=== PATIENT | female | born 2000 | race African-American/Black ===

== ENCOUNTER 2022-01-25 20:14 | Inpatient (IN) | payer MEDICAID, OTHER ==
[2022-01-25] MEDS ORDERED: ACETAMINOPHEN TAB 325 MG TAB PO PRN (22:06)
[2022-01-25] MEDS ORDERED: MAGNESIUM HYDROXIDE 2,400 MG/10 ML CUP PO PRN (22:06)
[2022-01-25] MEDS ORDERED: MAG HYDROX/AL HYDROX/SIMETH 30 ML CUP PO PRN (22:06)
[2022-01-25] MEDS ORDERED: HALOPERIDOL LACTATE 5 MG/ML 1 ML VIAL IM PRN (22:15)
[2022-01-25] MEDS ORDERED: LORazepam 2 MG/ML INJ IM PRN (22:16)
[2022-01-25] MEDS: OLANZapine 10 MG TAB PO SCH (22:37)
[2022-01-26] MEDS: MAGNESIUM OXIDE 400 MG TAB PO SCH (09:04)
[2022-01-26] MEDS: LURASIDONE 20 MG TAB PO SCH (09:04)
[2022-01-26] MEDS: LORazepam 1 MG TAB PO PRN (17:00)
[2022-01-26] MEDS: haloperidoL 5 MG TAB PO PRN (18:08)
--- NOTE | 2022-01-26 20:18 | P.HP ---
Psychiatric H&P - . H&P Date: 01/26/22 History & Physical: IDENTIFYING DATA: Patient is a 21 year old female with acute psychosis who was transferred from [facility]. HPI: Patient presented to the hospital after being picked up by police. She reports she was brought to the hospital because she was paranoid and thought that people were out to get her, was being watched, parents were not letting her out of the house, couldn't drive the car, has to be near them, because she wasn't being herself. She got out of the house, ran down the street screaming, and her parents had to call the police. Patient denies any suicidal or homicidal ideations intent or plan. Patient denies any flight of ideas racing thoughts and increased in goal directed behavior. She does appear overtly psychotic and there is evidence thought blocking. She reports auditory hallucinations, denies visual hallucinations. She denies drinking alcohol. She reports smoking marijuana three times a week. She denies any other illicit drug use or tobacco use. PAST PSYCHIATRIC HISTORY: Patient states that she has been diagnosed with paranoid schizophrenia. Past psychiatric medications: Zyprexa (reports this helped her), but has not taken it in four months because she thought she was doing ok. Previous psychiatric hospitalizations: [facility], and has been to [facility] several times. Psychiatric outpatient follow-up: Dr. Sudhir cohen. History of suicide attempts in the past: 3 times PMH: denies ALLERGIES: as per EMR CHEMICAL DEPENDENCY HISTORY: as per HPI FAMILY PSYCHIATRIC/SUBSTANCE USE HISTORY: Maternal grandmother - "a lunatic", Paternal grandfather - schizophrenia SOCIAL HISTORY: Patient was born and raised in [place], [place]. Never , no children. Lives alone in [facility] at an assisted living apartment. MENTAL STATUS EXAM: General Appearance: Patient appears to be stated age, is dressed in tank top and sweats, fair hygiene. Orientation: She is alert, oriented to person, place, time and situation. Behavior: Patient is seated without any agitated behavior. Speech: Patient's speech is fluent and nonpressured, speaks in soft tone. Mood/Affect: Patient reports their mood is fine, affect is congruent and blunted. Suicidality/Homicidality: Patient denies having any homicidal ideation intent or plan. Denies any suicidal ideations intent or plan. Perceptions: Patient denies any visual hallucinations, but does endorse auditory hallucinations and appears to be attending to internal stimuli. Though content/process: There is no evidence of some paranoid delusional thought content. Thought process is generally linear, with some evidence of thought blocking. Memory and concentration: Grossly intact for the purposes of this session. Can spell "WORLD" backwards Judgment and insight: poor STRENGTHS/WEAKNESSES: Strength is that patient is resilient. Weakness is that patient has poor judgment and is impulsive. INTELLECT: Average IMPRESSIONS: Schizophrenia Cannabis use disorder PLAN: -Patient is admitted under involuntary status to MHU for stabilization of psychiatric symptoms and safety. Patient has signed adult voluntary form and medication consent and is placed in patient's chart. -Medications: Zyprexa restarted at 10 mg QHS for psychosis. Latuda restarted at 60 mg daily in the morning, and will titrate further as necessary. -Ativan and Haldol PRN for agitation/aggression -Patient was counselled on substance abuse and desired to cut back on use -Patient was informed of the risks, benefits and side effects of the medication and patient verbally consented to taking the medications. Patient signed med consent form and was placed in chart. -Internal Medicine consult to perform medical evaluation and physical. -NRT - not a smoker -SW on board for discharge planning. Encourage patient to participate in groups to work on coping skills. [] Allergies Allergy/AdvReac Type Severity Reaction Status Date / Time No Known Allergies Allergy Verified 01/26/22 13:55 Vital Signs Temp 97 F L 01/26/22 06:37 Pulse 74 01/26/22 06:37 Resp 12 01/26/22 06:37 BP 88/51 01/26/22 06:37 Pulse Ox FiO2 Intake & Output 01/26/22 01/26/22 01/27/22 06:59 18:59 06:59 Weight 71.7 kg 01/26/22 19:56 01/26/22 20:09
[2022-01-26] MEDS ORDERED: OLANZapine 10 MG TAB PO SCH (21:00)
[2022-01-26] MEDS: OLANZapine 10 MG TAB PO SCH (21:01)
--- NOTE | 2022-01-27 03:21 | P.PN ---
Progress Note - Text Progress Note Date: 01/26/22 Attempted to see the patient in the mental health unit at 2100 on 01/26. The patient was refusing to be seen or be evaluated.
[2022-01-27] MEDS: MAGNESIUM OXIDE 400 MG TAB PO SCH (08:54)
[2022-01-27] MEDS: LURASIDONE 20 MG TAB PO SCH (08:54)
[2022-01-27] MEDS: haloperidoL 5 MG TAB PO PRN (10:48)
[2022-01-27 17:08] LABS: Chol/HDL Ratio 2.91 Ratio; LDL Cholesterol,Calculated 74.1 mg/dL (0.0-131.0); VLDL Calculation 13.92 mg/dL (5.00-40.00)
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
[2022-01-27] MEDS ORDERED: PALIPERIDONE 3 MG TAB.ER.24 PO SCH (21:00)
[2022-01-28] MEDS ORDERED: LURASIDONE 40 MG TAB PO SCH (09:00)
[2022-01-28] MEDS: MAGNESIUM OXIDE 400 MG TAB PO SCH (09:35)
[2022-01-28] MEDS: PALIPERIDONE 6 MG TAB.ER.24 PO SCH ×2 (14:50→15:20)
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
--- NOTE | 2022-01-29 02:10 | P.PN ---
Progress Note - Text Progress Note Date: 01/29/22 Attempt to see the patient at 2200 on 01/28. The patient was sleeping and refused to be seen or evaluated.
[2022-01-29 07:08] VITALS: RESP 16
[2022-01-29] MEDS: MAGNESIUM OXIDE 400 MG TAB PO SCH (09:27)
[2022-01-29] MEDS: PALIPERIDONE 6 MG TAB.ER.24 PO SCH (09:34)
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
[2022-01-29] MEDS: LORazepam 1 MG TAB PO PRN (22:05)
[2022-01-30] MEDS ORDERED: PALIPERIDONE 3 MG TAB.ER.24 PO SCH ×2 (09:00→15:00)
[2022-01-30] MEDS: MAGNESIUM OXIDE 400 MG TAB PO SCH (09:09)
[2022-01-30] MEDS ORDERED: LORazepam 2 MG/ML INJ IM PRN (09:34)
[2022-01-30] MEDS ORDERED: LORazepam 0.5 MG TAB PO PRN (09:35)
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
[2022-01-30] MEDS: haloperidoL 5 MG TAB PO PRN (11:07)
[2022-01-30 16:03] LABS: Appearance,Urine Clear (Clear); Bilirubin,Urine Negative (Negative); Blood,Urine Negative (Negative); Color,Urine Light Yellow; Glucose,Urine (UA) Negative (Negative); Ketones,Urine Negative (Negative); Leukocyte Esterase,Urine Moderate (Negative); Nitrite,Urine Negative (Negative); PH, Urine 6.5 (5.0-8.0); Protein,Urine Negative (Negative); RBC,Urine 2 /hpf (0-5); Specific Gravity,Urine 1.004 (1.001-1.035); Squamous Epithelial Cell,Urine 3 /hpf (0-4); Urobilinogen,Urine <2.0 mg/dL (<2.0); WBC,Urine 4 /hpf (0-5)
[2022-01-31] MEDS: MAGNESIUM OXIDE 400 MG TAB PO SCH (08:35)
[2022-01-31] MEDS ORDERED: PALIPERIDONE IM 234 MG/1.5 ML SYG IM STA (09:41)
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
[2022-02-01 07:06] VITALS: BP 94/53; PULSE 87; TEMP 97.6
[2022-02-01] MEDS: MAGNESIUM OXIDE 400 MG TAB PO SCH (08:53)
[2022-02-01] MEDS ORDERED: PALIPERIDONE 6 MG TAB.ER.24 PO SCH (11:30)
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
== END 2022-02-01 12:54 | disposition home or self-care (01) | DRG 885 ==
LOC: 3MHU 20:14
PROVIDERS: ADMIT Psychiatry & Neurology Psychiatry; ATTEND Psychiatry & Neurology Psychiatry
DX: F20.0 Paranoid schizophrenia (principal); Z91.14 Patient's other noncompliance with medication regimen; Z81.8 Family history of other mental and behavioral disorders; Z91.51 Personal history of suicidal behavior; Z87.820 Personal history of traumatic brain injury
CPT/HCPCS: 80061; 81001; 83036; 84443; 87086